=== PATIENT | female | born 1960 | race Caucasian/White ===

== ENCOUNTER 2018-07-11 19:25 | Observation (INO) | payer MEDICARE ==
[2018-07-11 19:53] LABS: HEMATOCRIT 40.7 % (35.0-47.0); HEMOGLOBIN 13.5 gm/dl (11.6-16.0); MEAN CELL VOLUME 91.7 fl (81-97); MEAN CORPUSCULAR HEMOGLOBIN 30.4 pg (27-33); MEAN CORPUSCULAR HGB CONC 33.2 g/dl (32-36); MEAN PLATELET VOLUME 10.4 fl (7.4-10.4); PLATELET COUNT 181 K/uL (130-400); RED BLOOD COUNT 4.44 M/uL (3.80-5.40); RED CELL DISTRIBUTION WIDTH 13.1 % (11.5-14.5); WHITE BLOOD COUNT W/O DIFF 9.9 K/uL (4.2-12.2)
--- NOTE | 2018-07-11 20:00 | Emergency Department Record ---
History of Present Illness - General Chief Complaint: Chest Pain Stated Complaint: CHEST PAIN Time Seen by Provider: 07/11/18 19:56 Source: Patient, Family Mode of Arrival: Ambulatory Limitations: No limitations - History of Present Illness Initial Comments: 57 yo female presents with mid chest pain. The pain started at the time of her shoulder surgery today. She states her mid chest hurt when she was laid back on the surgery table prior to the procedure. The chest again hurt when she awoke from anesthesia. The pain has been present since this morning around 8am. The pain is in the middle of the chest. It does have a positional component to it. No shortness of breath. It is worse laying down and better standing up. No cardiac history. MD Complaint: Chest pain Onset/Timin -: Hour(s) Onset: Other (onset laying down for surgery today) Pain Location: Substernal Severity scale (1-10): 6 Quality: Aching, Dull, Heaviness Consistency: Constant Improves With: Leaning foward Worsens With: Movement, Palpation, Other (Laying down) Context: Recent surgery (this AM) Anginal Symptoms: Dyspnea Treatments Prior to Arrival: None - Related Data Home Medications Medication Instructions Recorded Confirmed Last Taken Oxycodone HCl/Acetaminophen 1 - 2 tab PO Q4H PRN 07/11/18 07/11/18 07/11/18 [Percocet 5mg/325mg] Allergies Allergy/AdvReac Type Severity Reaction Status Date / Time latex Allergy Mild RASH Verified 07/11/18 19:29 Travel Screening - Travel/Exposure Within Last 30 Days Have you traveled within the last 30 days?: No - Travel Symptoms Symptom Screening: None Review of Systems Constitutional: Denies: Chills, Fever, Malaise, Weakness Eyes: Denies: Eye discharge ENT: Denies: Congestion, Throat pain Respiratory: Denies: Cough, Dyspnea, Hemoptysis, Stridor, Wheezes Cardiovascular: Reports: Chest pain. Denies: Edema, Palpitations, Syncope Endocrine: Denies: Fatigue Gastrointestinal: Denies: Abdominal pain, Diarrhea, Nausea, Vomiting Musculoskeletal: Denies: Arthralgia, Back pain, Myalgia Skin: Denies: Bruising, Change in color, Rash Neurological: Denies: Headache Psychiatric: Denies: Anxiety Hematological/Lymphatic: Denies: Blood Clots, Easy bleeding, Easy bruising Past Medical History - SOCIAL HISTORY Smoking Status: Former smoker Alcohol Use: Rare Drug Use: Heavy Drug Use Detail:: Marijuana - RESPIRATORY Hx Respiratory Disorders: Yes Hx COPD: Yes (early stages) Hx Sleep Apnea: Yes Hx of CPAP: No - CARDIOVASCULAR Hx Cardio Disorders: Yes Hx Palpitations: Yes Comment:: Thickening around a heart valve - NEURO Hx Neuro Disorders: No - GI Hx GI Disorders: Yes Hx Diverticulitis: Yes Hx Reflux: Yes Hx of Polyps: Yes (benign) - Hx Genitourinary Disorders: Yes Hx Bladder Problem: Yes (incontinence) - ENDOCRINE Hx Endocrine Disorders: No - MUSCULOSKELETAL Hx Musculoskeletal Disorders: Yes Hx Arthritis: Yes (osteo) Hx Fibromyalgia: Yes Hx Gout: Yes - PSYCH Hx Psych Problems: Yes Hx Anxiety: Yes Hx Depression: Yes - HEMATOLOGY/ONCOLOGY Hx Hematology/Oncology Disorders: No Family Medical History Any Significant Family History?: Yes Hx Cancer: Mother Hx Heart Disease: Father, Brother/Sister Physical Exam - General General Appearance: Alert, Oriented x3, Cooperative, No acute distress Limitations: No limitations - Head Head exam: Atraumatic, Normal inspection - Eye Eye exam: Normal appearance. negative: Conjunctival injection, Scleral icterus - ENT ENT exam: Normal exam Ear exam: Normal external inspection Nasal Exam: Normal inspection Mouth exam: Normal external inspection - Neck Neck exam: Normal inspection - Respiratory Respiratory exam: Normal lung sounds bilaterally, Chest wall tenderness (mid to lower ). negative: Accessory muscle use, Prolonged expiratory, Respiratory distress, Rhonchi, Stridor, Wheezes - Cardiovascular Cardiovascular Exam: Regular rate, Normal rhythm, Normal heart sounds - GI/Abdominal GI/Abdominal exam: Soft. negative: Tenderness - Rectal Rectal exam: Deferred - exam: Deferred - Extremities Extremities exam: Normal inspection, Full ROM, Normal capillary refill. negative: Tenderness - Back Back exam: Reports: Normal inspection, Full ROM. Denies: Muscle spasm, Rash noted, Tenderness - Neurological Neurological exam: Alert, Oriented X3 - Psychiatric Psychiatric exam: Normal affect, Normal mood - Skin Skin exam: Dry, Intact, Normal color, Warm Course Vital Signs 07/11/18 19:31 Temperature 98.4 F Pulse Rate 104 H Respiratory 20 Rate Blood Pressure 135/95 Pulse Ox 97 - Reevaluation(s) Reevaluation #1: EKG 1933 Sinus Tach 107, intervals normal, axis normal, ST normal, No acute changes. Normal except rate. No significant changes from 11/19/17 Her physical examination is consistent with a chest wall etiology. Her sternum is tender in the lower 1/2 The chest pain is atypical in that it started on the OR table as she laid down and was there when she awoke. Atypical for cardiac. 07/11/18 21:36 The labs were reviewed No significant abnormalities 07/11/18 22:32 The troponin is normal The CT scan was negative for PE, there is elevation of the right hemidiaphragm and lower lobe infiltrate. 07/11/18 22:56 Given the right lower lobe infiltrate I recommend admission for antibiotics and monitor overnight 07/12/18 00:15 Medical Decision Making - Lab Data Result diagrams: 07/11/18 19:40 07/11/18 19:40 Lab Results 07/11/18 Range/Units 19:40 WBC 9.9 (4.2-12.2) K/uL RBC 4.44 (3.80-5.40) M/uL Hgb 13.5 (11.6-16.0) gm/dl Hct 40.7 (35.0-47.0) % MCV 91.7 (81-97) fl MCH 30.4 (27-33) pg MCHC 33.2 (32-36) g/dl RDW 13.1 (11.5-14.5) % Plt Count 181 (130-400) K/uL MPV 10.4 (7.4-10.4) fl Eosinophils % Not Reportable Basophils % Not Reportable Disposition Disposition: Admit Clinical Impression: Pneumonia Disposition: Still a Patient at [facility] Decision to Admit: Admit from ER Decision to Admit Date: 07/11/18 Decision to Admit Time: 22:41 Condition: (2) Stable Forms: Patient Portal Access Time of Disposition: 22:41 Quality - Quality Measures Quality Measures: N/A - Blood Pressure Screening Does Patient Have Any of the Following: No Blood Pressure Classification: Hypertensive Reading Systolic Measurement: 135 Diastolic Measurement: 95 Screening for High Blood Pressure: < Pre-Hypertensive BP, F/U Documented > [ G8950] Pre-Hypertensive Follow-up Interventions: Referral to alternative/primary care provider.
[2018-07-11 20:01] LABS: CREATININE 1.1 mg/dL (0.5-0.9)
[2018-07-11 20:05] LABS: INR 1.1; PARTIAL THROMBOPLASTIN TIME 24.1 SECONDS (24.5-39.1); PROTHROMBIN TIME (PATIENT) 10.7 SECONDS (9.5-12.1)
[2018-07-11 20:30] LABS: PLATELET ESTIMATE NORMAL (NORMAL)
[2018-07-11] MEDS ORDERED: 0.9 % SODIUM CHLORIDE 1,000 ML BAG IV ONE (20:57)
[2018-07-11] MEDS ORDERED: MORPHINE SULFATE 10 MG/ML VIAL IVP ONE (21:31)
[2018-07-11] MEDS ORDERED: AZITHROMYCIN 500 MG TABLET PO ONE (22:40)
[2018-07-11] MEDS ORDERED: CEFTRIAXONE SODIUM 1 GM in 0.9 % SODIUM CHLORIDE 100ML 100 ML IVPB ONE (22:40)
[2018-07-11] MEDS ORDERED: OXYCODONE HCL/APAP 5MG/325MG TABLET PO ONE (23:23)
[2018-07-12] MEDS ORDERED: OXYCODONE HCL/APAP 5MG/325MG TABLET PO PRN (00:26)
[2018-07-12] MEDS ORDERED: CEFTRIAXONE SODIUM 1 GM in 0.9 % SODIUM CHLORIDE 100ML 100 ML IVPB SCH (00:26)
[2018-07-12] MEDS ORDERED: ACETAMINOPHEN 500 MG TABLET PO PRN (00:26)
[2018-07-12] MEDS ORDERED: 0.9 % SODIUM CHLORIDE 1000ML 1,000 ML IV PRN (00:26)
[2018-07-12] MEDS ORDERED: FAMCICLOVIR 1500 MG PO SCH (00:26)
[2018-07-12] MEDS ORDERED: ALBUTEROL SULFATE (0.083%) 2.5 MG/3 ML NEB INH PRN (00:26)
[2018-07-12] MEDS: PANTOPRAZOLE SODIUM 40 MG TABLET PO SCH ×3 (00:53→17:33)
[2018-07-12] MEDS: OXYCODONE HCL/APAP 5MG/325MG TABLET PO PRN ×6 (03:16→23:38)
--- NOTE | 2018-07-12 07:39 | CT ANGIOGRAM REPORT ---
EXAM: CT ANGIOGRAM OF THE CHEST HISTORY: PNEUMONIA. TECHNIQUE: CTA of the chest was performed. FINDINGS: There is elevation of the right hemidiaphragm. There are small gas collections within the right shoulder girdle. There is infiltrate in the right lung base with elevation of the right hemidiaphragm. There are air bronchograms present. The visualized upper abdominal structures are normal. There is mild degenerative change of the thoracic spine. IMPRESSION: NO CTA FINDINGS SUGGESTIVE OF PULMONARY EMBOLISM. THERE ARE SMALL GAS COLLECTIONS IN THE RIGHT SHOULDER GIRDLE. THE ETIOLOGY OF THESE ARE UNCERTAIN. THERE IS A RIGHT LOWER LOBE INFILTRATE WITH AIR BRONCHOGRAMS. THERE IS ELEVATION OF THE RIGHT HEMIDIAPHRAGM. JOB NUMBER: [id number] MTDD
--- NOTE | 2018-07-12 08:07 | History & Physical ---
History of Present Illness - Date of Service Date of Service for History & Physical: 07/13/18 - History of Present Illness Admitting Diagnosis: pneumonia History of Present Illness: 57 yo female admitted for PNA s/p right rotator cuff repair. Pt reports having substernal chest pain that started when she was transferred from stretcher to surgical table for rotator cuff surgery. Pt states that they repositioned her, pain continued, surgery progressed as usual. Pt awoke from surgery and continued to have pain. Was d/c'd from day surgery went home with continued CP and then progressed to having difficulty breathing with c/o difficulty taking a deep breath. Pt had a nerve block placed in pre-op, went to surgical suite and then had cp when laid flat. Pt to [facility] ER 07/11/[address], no acute changes and no changes from 11/19/17. CT negative for PE but shows right LL PNA and right hemidiaphragm. BP 143/91, HR 108, RR 18, 93% RA, 98.3F WBC 9.9, Hgb 13.5, Hct 40.7, Plt 181 INR 1.1, PT 10.7 NA 141, K 4.4, Cl 103, CO2 26, BUN 15, Cr 1.1, GFR 55, glucose 152, trop <0.010 Given 1L NS, percocet, Rocephin 1gm, Zithromax 500mg PO Admission for PNA 07/12/18 Pt resting in bed, no acute distress. A&ox4, sitting up and playing video games on ipad. Pt had right shoulder immobilizer placed from surgery that remains intact. Denies SOB, using incentive spirometer but having low lung volume. Pt denies any CXR previous to surgery, stopped smoking 05/09/18, no known COPD. Repeat CXR shows mild hemidiaphragm still but pt remains asymptomatic at this time. Dr Mullen consulted about issues, reports rare potential from hitting phrenic nerve with should block. Ok to d/c in AM if medically stable, follow up as directed from post op instructions. PCP Radha Saini Specialist [facility] Travel Screening - Travel/Exposure Within Last 30 Days Have you traveled within the last 30 days?: No - Travel/Exposure Within Last Year Have you traveled outside the [place] in the last year?: No - Additonal Travel Details Have you been exposed to anyone with a communicable illness?: No - Travel Symptoms Symptom Screening: None Review of Systems Constitutional: Denies: Chills, Fever, Malaise, Weakness Eyes: Denies: Eye discharge ENT: Denies: Congestion, Throat pain Respiratory: Denies: Cough, Dyspnea, Hemoptysis, Stridor, Wheezes Cardiovascular: Reports: Chest pain. Denies: Edema, Palpitations, Syncope Endocrine: Denies: Fatigue Gastrointestinal: Denies: Abdominal pain, Diarrhea, Nausea, Vomiting Musculoskeletal: Denies: Arthralgia, Back pain, Myalgia Skin: Denies: Bruising, Change in color, Rash Neurological: Denies: Headache Psychiatric: Denies: Anxiety Hematological/Lymphatic: Denies: Blood Clots, Easy bleeding, Easy bruising Past Medical History - SOCIAL HISTORY Smoking Status: Former smoker Alcohol Use: Rare Drug Use: Heavy Drug Use Detail:: Marijuana - RESPIRATORY Hx Respiratory Disorders: Yes Hx COPD: Yes (early stages) Hx Sleep Apnea: Yes Hx of CPAP: No - CARDIOVASCULAR Hx Cardio Disorders: Yes Hx Palpitations: Yes Comment:: Thickening around a heart valve - NEURO Hx Neuro Disorders: No - GI Hx GI Disorders: Yes Hx Diverticulitis: Yes Hx Reflux: Yes Hx of Polyps: Yes (benign) - Hx Genitourinary Disorders: Yes Hx Bladder Problem: Yes (incontinence) - ENDOCRINE Hx Endocrine Disorders: No - MUSCULOSKELETAL Hx Musculoskeletal Disorders: Yes Hx Arthritis: Yes (osteo) Hx Fibromyalgia: Yes Hx Gout: Yes - PSYCH Hx Psych Problems: Yes Hx Anxiety: Yes Hx Depression: Yes - HEMATOLOGY/ONCOLOGY Hx Hematology/Oncology Disorders: No Family Medical History Any Significant Family History?: Yes Hx Cancer: Mother Hx Heart Disease: Father, Brother/Sister H&P Meds/Allergies - Allergies Allergies: Allergies Allergy/AdvReac Type Severity Reaction Status Date / Time latex Allergy Mild RASH Verified 07/11/18 19:29 - Home Medications Home Medications Medication Instructions Recorded Confirmed Last Taken Oxycodone HCl/Acetaminophen 1 - 2 tab PO Q4H PRN 07/11/18 07/11/18 07/11/18 [Percocet 5mg/325mg] - Active Medications Active Medications: Current Medications Acetaminophen (Tylenol 500mg Tab) 1,000 mg PO Q6H PRN PRN Reason: PAIN - MILD(1-4)/FEVER Albuterol Sulfate () 2.5 mg INH RESP.Q4H PRN PRN Reason: DIFFICULTY IN BREATHING Azithromycin (Zithromax) 500 mg PO DAILY [facility] Fluticasone Propionate (Flonase) 2 spray NA DAILY [facility] Sodium Chloride () 1,000 mls @ 125 mls/hr IV .Q8H PRN PRN Reason: LARGE VOLUME IV Ceftriaxone Sodium 1 gm/ (Sodium Chloride) 100 mls @ 100 mls/hr IVPB Q24H [facility] Stop: 07/18/18 00:01 Montelukast Sodium (Singulair) 10 mg PO QHS [facility] Morphine Sulfate (Morphine Sulfate) 5 mg IVP Q6H PRN PRN Reason: PAIN - MILD (1-4) Non-Formulary Medication (Famciclovir [Famciclovir]) 1,500 mg PO ASDIR [facility] Oxycodone/Acetaminophen (Percocet 5-325 Mg Tablet) 1 udtab PO Q4H PRN PRN Reason: PAIN - MILD TO MODERATE (1-7) Oxycodone/Acetaminophen (Percocet 5-325 Mg Tablet) 2 udtab PO Q4H PRN PRN Reason: PAIN - MOD TO SEVERE (5-10) Last Admin: 07/12/18 07:06 Dose: 2 udtab Pantoprazole Sodium (Protonix) 40 mg PO BIDAC [facility] Last Admin: 07/12/18 07:06 Dose: 40 mg Physical Exam - Vital Signs Vital Signs: Vital Signs - Last 24 Hrs Temp Pulse Pulse Resp BP BP Pulse Ox 07/12/18 07:42 97.9 F 77 16 140/92 95 07/12/18 00:26 97.9 F 89 20 147/96 94 L 07/11/18 23:43 95 H 18 128/86 93 L 07/11/18 22:15 93 H 20 123/88 94 L 07/11/18 22:01 96 H 22 123/88 95 07/11/18 20:52 96 H 24 124/94 92 L 07/11/18 19:31 98.4 F 104 H 20 135/95 97 - General General Appearance: Alert, Oriented x3, Cooperative, No acute distress Limitations: No limitations - Head Head exam: Atraumatic, Normal inspection - Eye Eye exam: Normal appearance. negative: Conjunctival injection, Scleral icterus - ENT ENT exam: Normal exam Ear exam: Normal external inspection Nasal Exam: Normal inspection Mouth exam: Normal external inspection - Neck Neck exam: Normal inspection - Respiratory Respiratory exam: Normal lung sounds bilaterally, Chest wall tenderness (mid to lower ). negative: Accessory muscle use, Prolonged expiratory, Respiratory distress, Rhonchi, Stridor, Wheezes - Cardiovascular Cardiovascular Exam: Regular rate, Normal rhythm, Normal heart sounds Peripheral Pulses: 3+: Radial (R), Radial (L), Dorsalis Pedis (R), Dorsalis Pedis (L) - GI/Abdominal GI/Abdominal exam: Soft. negative: Tenderness - Rectal Rectal exam: Deferred - exam: Deferred - Extremities Extremities exam: Normal inspection, Full ROM, Normal capillary refill. negative: Tenderness - Back Back exam: Reports: Normal inspection, Full ROM. Denies: Muscle spasm, Rash noted, Tenderness - Neurological Neurological exam: Alert, Oriented X3 - Psychiatric Psychiatric exam: Normal affect, Normal mood - Skin Skin exam: Dry, Intact, Normal color, Warm Results - Labs Result Diagrams: 07/11/18 19:40 07/11/18 19:40 Labs Last 24 Hours: Laboratory Results - last 24 hr 07/11/18 07/11/18 07/11/18 19:40 19:40 19:40 WBC 9.9 RBC 4.44 Hgb 13.5 Hct 40.7 MCV 91.7 MCH 30.4 MCHC 33.2 RDW 13.1 Plt Count 181 MPV 10.4 Neutrophils % 86.0 H Eosinophils % Not Reportable Basophils % Not Reportable Lymphocytes 9.0 L Monocytes 5.0 Platelet Estimate Normal RBC Morphology Normal PT 10.7 INR 1.1 APTT 24.1 L Sodium 141 Potassium 4.4 Chloride 103 Carbon Dioxide 26.0 Anion Gap 12.0 BUN 15 Creatinine 1.1 H Estimated GFR 55 Random Glucose 152 H Calcium 9.0 Troponin T 07/11/18 07/12/18 19:40 04:00 WBC RBC Hgb Hct MCV MCH MCHC RDW Plt Count MPV Neutrophils % Eosinophils % Basophils % Lymphocytes Monocytes Platelet Estimate RBC Morphology PT INR APTT Sodium Potassium Chloride Carbon Dioxide Anion Gap BUN Creatinine Estimated GFR Random Glucose Calcium Troponin T < 0.010 < 0.010 - Imaging and Cardiology CT scan - chest Status: Report reviewed VTE H&P Assessment - Risk for VTE Risk for VTE: Yes Risk Level: Moderate Risk Assessment Date: 07/13/18 Risk Assessment Time: 10:24 VTE Orders Placed or Will Be Placed: No VTE Reason for No Prophylaxis: Not Indicated (pt d/c today 07/13/18) Plan - Detailed Diagnosis and Plan (1) Pneumonia Current Visit: Yes Status: Acute Base Code: J18.9 - PNEUMONIA, UNSPECIFIED ORGANISM Comment: 07/12/18 -continue Rocephin 1gm and Zithromax 500mg -continue insentive spirometer 10/hr while awake -report any SOB/CHRYSTAL immediately -repeat CXR show mild hemidiaphragm right, pt asymptomatic (2) Phrenic nerve palsy Current Visit: Yes Status: Acute Base Code: G58.8 - OTHER SPECIFIED MONONEUROPATHIES Comment: 07/12/18 -Dr Bhat consulted, reports possible phrenic nerve involvement with right shoulder nerve block -D/C when medically stable as block will wear off (3) Full code status Current Visit: Yes Status: Acute Base Code: Z78.9 - OTHER SPECIFIED HEALTH STATUS Comment: 07/12/18 -full code
[2018-07-12] MEDS: AZITHROMYCIN 500 MG TABLET PO SCH (09:55)
[2018-07-12] MEDS: MORPHINE SULFATE 10 MG/ML VIAL IVP PRN ×2 (09:59→21:45)
[2018-07-12] MEDS ORDERED: MONTELUKAST SODIUM 10MG TABLET PO SCH ×2 (10:00→22:00)
[2018-07-12] MEDS: DOCUSATE SODIUM 100 MG CAPSULE PO SCH ×2 (10:03→21:37)
[2018-07-12] MEDS ORDERED: ONDANSETRON 4 MG ODT TABLET SL PRN (13:18)
[2018-07-12] MEDS: FLUTICASONE PROPIONATE 50MCG NASAL 16 GM BTL SCH (21:37)
[2018-07-13] MEDS ORDERED: CEFTRIAXONE 1GM/50ML BAG 1 GM/50 ML BAG IVPB SCH
[2018-07-13] MEDS: OXYCODONE HCL/APAP 5MG/325MG TABLET PO PRN ×2 (04:50→08:46)
[2018-07-13] MEDS: PANTOPRAZOLE SODIUM 40 MG TABLET PO SCH (06:49)
[2018-07-13] MEDS: DOCUSATE SODIUM 100 MG CAPSULE PO SCH (09:23)
[2018-07-13] MEDS: AZITHROMYCIN 500 MG TABLET PO SCH (09:33)
--- NOTE | 2018-07-13 10:06 | Discharge Summary ---
Providers Discharge Summary Date: 07/13/18 Date of admission: 07/12/18 00:20 Expected Date of Discharge: 07/13/18 Attending physician: TALIA JEAN Primary care physician: Radha Saini N.P. Physical Exam - Vital Signs Vital Signs: Vital Signs - Last 24 Hrs Temp Pulse Resp BP Pulse Ox 07/13/18 08:54 20 07/12/18 20:15 98.2 F 75 18 144/90 95 07/12/18 16:00 98.3 F 108 H 18 143/91 93 L - General General Appearance: Alert, Oriented x3, Cooperative, No acute distress Limitations: No limitations - Head Head exam: Atraumatic, Normal inspection - Eye Eye exam: Normal appearance. negative: Conjunctival injection, Scleral icterus - ENT ENT exam: Normal exam Ear exam: Normal external inspection Nasal Exam: Normal inspection Mouth exam: Normal external inspection - Neck Neck exam: Normal inspection - Respiratory Respiratory exam: Normal lung sounds bilaterally, Chest wall tenderness (mid to lower ). negative: Accessory muscle use, Prolonged expiratory, Respiratory distress, Rhonchi, Stridor, Wheezes - Cardiovascular Cardiovascular Exam: Regular rate, Normal rhythm, Normal heart sounds Peripheral Pulses: 3+: Radial (R), Radial (L), Dorsalis Pedis (R), Dorsalis Pedis (L) - GI/Abdominal GI/Abdominal exam: Soft, Normal bowel sounds. negative: Tenderness - Rectal Rectal exam: Deferred - exam: Deferred - Extremities Extremities exam: Normal inspection, Full ROM, Normal capillary refill. negative: Tenderness - Back Back exam: Reports: Normal inspection, Full ROM. Denies: Muscle spasm, Rash noted, Tenderness - Neurological Neurological exam: Alert, Oriented X3 - Psychiatric Psychiatric exam: Normal affect, Normal mood - Skin Skin exam: Dry, Intact, Normal color, Warm Hospitalization - Hospitalization Admission Diagnosis: pneumonia - Problem List/Discharge Diagnosis (1) Pneumonia Current Visit: Yes Status: Acute Base Code: J18.9 - PNEUMONIA, UNSPECIFIED ORGANISM Comment: 07/12/18 -continue Rocephin 1gm and Zithromax 500mg -continue insentive spirometer 10/hr while awake -report any SOB/CHRYSTAL immediately -repeat CXR show mild hemidiaphragm right, pt asymptomatic 07/13/18 -pt reports feeling well, wants to go home -incentive spirometer 1750 lung capacity -no CP, SOB, CHRYSTAL reported (mild discomfort with IS use but reolves with rest) (2) Phrenic nerve palsy Current Visit: Yes Status: Acute Base Code: G58.8 - OTHER SPECIFIED MONONEUROPATHIES Comment: 07/12/18 -Dr Bhat consulted, reports possible phrenic nerve involvement with right shoulder nerve block -D/C when medically stable as block will wear off 07/13/18 -D/C home -f/u PCP 1-2 weeks -repeat CXR 5 days (3) Full code status Current Visit: Yes Status: Acute Base Code: Z78.9 - OTHER SPECIFIED HEALTH STATUS Comment: 07/13/18 -full code - Disposition Pt in no distress, using IS with improved results. Tolerating Po ABX. Denies SOB /CHRYSTAL or CP at rest. F/U PCP, Cardiology, and ortho Cardiac enzymes negative, probable cause of pain is phrenic nerve palsy r/t right should nerve block. Medically stable. Go to ER for SOB, CHRYSTAL, Cp that is radiating to left arm, jaw or that is breaking through current pain medications. Continue IS - Hospitalization Course Disposition: Home, Self-Care Hospital Course: 57 yo female admitted for PNA s/p right rotator cuff repair. Pt reports having substernal chest pain that started when she was transferred from stretcher to surgical table for rotator cuff surgery. Pt states that they repositioned her, pain continued, surgery progressed as usual. Pt awoke from surgery and continued to have pain. Was d/c'd from day surgery went home with continued CP and then progressed to having difficulty breathing with c/o difficulty taking a deep breath. Pt had a nerve block placed in pre-op, went to surgical suite and then had cp when laid flat. Pt to [facility] ER 07/11/[address], no acute changes and no changes from 11/19/17. CT negative for PE but shows right LL PNA and right hemidiaphragm. BP 143/91, HR 108, RR 18, 93% RA, 98.3F WBC 9.9, Hgb 13.5, Hct 40.7, Plt 181 INR 1.1, PT 10.7 NA 141, K 4.4, Cl 103, CO2 26, BUN 15, Cr 1.1, GFR 55, glucose 152, trop <0.010 Given 1L NS, percocet, Rocephin 1gm, Zithromax 500mg PO Admission for PNA 07/12/18 Pt resting in bed, no acute distress. A&ox4, sitting up and playing video games on ipad. Pt had right shoulder immobilizer placed from surgery that remains intact. Denies SOB, using incentive spirometer but having low lung volume. Pt denies any CXR previous to surgery, stopped smoking 05/09/18, no known COPD. Repeat CXR shows mild hemidiaphragm still but pt remains asymptomatic at this time. Dr Mullen consulted about issues, reports rare potential from hitting phrenic nerve with should block. Ok to d/c in AM if medically stable, follow up as directed from post op instructions. PCP Radha Saini Specialist [facility] Procedures: Imaging and X-Rays 07/11/18 20:56 CHEST CTA w contrast [CTA] Stat 07/12/18 09:29 CHEST 1 VIEW [RAD] Stat Cardiology Procedures 07/11/18 19:30 Family Practice Doctor NOW EKG NOW 07/12/18 00:26 Family Practice Doctor .Continuous Family Practice Doctor .Continuous Abnormal Labs: Abnormal Lab Results 07/11/18 07/11/18 07/11/18 Range/Units 19:40 19:40 19:40 Neutrophils % 86.0 H (47-80) % Lymphocytes 9.0 L (16-45) % APTT 24.1 L (24.5-39.1) SECONDS Creatinine 1.1 H (0.5-0.9) mg/dL Random Glucose 152 H (74-109) mg/dL Condition at Discharge: (2) Stable Discharge Medications - Discharge Medications Prescriptions: Azithromycin [Zithromax] 250 mg PO DAILY 4 Days #4 tab Home Medications: Ambulatory Orders Oxycodone HCl/Acetaminophen [Percocet 5mg/325mg] 1 - 2 tab PO Q4H PRN 07/11/18 [ Last Taken 07/11/18] Acetaminophen [Tylenol 500Mg Tab] 1,000 mg PO Q6H PRN tablet 07/13/18 [Last Taken Unknown] Azithromycin [Zithromax] 250 mg PO DAILY 4 Days #4 tab 07/13/18 [Last Taken Unknown] Docusate Sodium [Colace] 100 mg PO BID cap 07/13/18 [Last Taken Unknown] Discharge Plan - Discharge Instructions Activity at Discharge: Increase Activity as Tolerated (as instructed by ortho) Diet at Discharge: Regular Diet Wound Primary Dressing Type: as instructed by ortho Instructions: Community Acquired Pneumonia (DC) Additional Instructions: Appointments have been scheduled for you as follows: Radha Saini at [facility] on 07/30 at 2:20PM Dr. Beck at [facility] on 08/09 at 3:00PM Resume home meds Zithromax once a day until gone. Start tomorrow. Diet as tolerated Follow your surgeon's discharge instructions Return to the ED if experiencing shortness of breath, ache or numbness in left arm or jaw, unrelenting chest pain. Chest x-ray in one week. Continue using your incentive spirameter 10 times an hour while awake. Quality Measures - Quality Measures Quality Measures: Documentation of Current Medications in Medical Record, Screening for High Blood Pressure and F/U Documented - Current Medications Quality Measure: Measure #130: Documentation of Current Medications Documentation of Current Medications: <Current Medications Documented/Reviewed> [G8427] - Blood Pressure Screening Quality Measure: Screening for High Blood Pressure and Follow-Up Documented Does Patient Have Any of the Following: No Blood Pressure Classification: Hypertensive Reading Systolic Measurement: 135 Diastolic Measurement: 95 Screening for High Blood Pressure: < First Hypertensive BP, F/U Documented > [ G8950] First Hypertensive Follow-up Interventions: Lifestyle modifications., Referral to alternative/primary care provider. Lifestyle Modification: Dietary Approaches to Stop Hypertension (DASH) Eating Plan, Increased Physical Activity - Elder Abuse Suspicion Index EASI Reference Information: Jory HERNANDEZ, Vadim C, Annel D, Kwasi Walls.Development and validation of a tool to assist physicians identification of elder abuse: The Elder Abuse Suspicion Index (EASI ). Journal of Elder Abuse and Neglect, 2008; 20 (3): 276-300.
[2018-07-13] MEDS: FLUTICASONE PROPIONATE 50MCG NASAL 16 GM BTL SCH (10:31)
--- NOTE | 2018-07-14 15:30 | RADIOLOGY REPORT ---
DATE: 07/12/2018. EXAM: PORTABLE CHEST. HISTORY: DIFFICULTY IN BREATHING. COMPARISON: 07/11/2018. TECHNIQUE: Portable AP upright view of the chest was performed. FINDINGS: Heart size is normal. Tortuous thoracic aorta. Linear infiltrate right lung base. Mild elevation of the right hemidiaphragm. IMPRESSION: 1. LINEAR INFILTRATE RIGHT LUNG BASE. 2. MILD ELEVATION OF THE RIGHT HEMIDIAPHRAGM. JOB NUMBER: [id number]
== END 2018-07-13 11:04 | disposition home or self-care (01) ==
LOC: ER 19:25 → MEDSURG 07-12 00:20
PROVIDERS: ADMIT Internal Medicine; ATTEND Internal Medicine
DX: J18.8 Other pneumonia, unspecified organism (principal); G58.8 Other specified mononeuropathies; Z98.890 Other specified postprocedural states; J44.9 Chronic obstructive pulmonary disease, unspecified; R32 Unspecified urinary incontinence; G47.30 Sleep apnea, unspecified; K57.92 Diverticulitis of intestine, part unspecified, without perforation or abscess without bleeding; K21.9 Gastro-esophageal reflux disease without esophagitis; M19.90 Unspecified osteoarthritis, unspecified site; M79.7 Fibromyalgia; M10.9 Gout, unspecified; Z87.891 Personal history of nicotine dependence
CPT/HCPCS: 85730; 85610; 80048; 84484 ×2; 85027; 71045; 71275; 94010; 93005; 93010; G0378 ×2; Q9967; J3490; J0696; J2270 ×2; 96365; 96374; 99220; 99285; J7030